=== PATIENT | female | born 2000 | race Caucasian/White ===

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

== ENCOUNTER 2022-01-10 21:56 | Emergency (ER) | payer SELFPAY ==
[~2022-01-10] VITALS: Ht 157.5 cm; Wt 83.9 kg
[~2022-01-10 21:56] MED LIST changes: +CEPH-588 PO
[2022-01-10 22:46] VITALS: BP 124/74
--- NOTE | 2022-01-10 22:50 | NUR ---
COVID-19 and flu swabs collected and sent to lab.
[2022-01-11] MEDS ORDERED: ONDA-188 SL (01:02)
[2022-01-11] MEDS: ACETAMINOPHEN EXTRA STRENGTH 500 MG TAB PO ONE (01:19)
[2022-01-11] MEDS: ONDANSETRON 4 MG ODT PO ONE (01:20)
[2022-01-11 01:46] VITALS: BP 122/74
--- NOTE | 2022-01-11 01:46 | NUR ---
Patient discharged with v/s stable. Written and verbal after care instructions given and explained for weakness. Patient alert, oriented and verbalized understanding of instructions. Ambulatory with steady gait. All questions addressed prior to discharge. ID band removed. Patient advised to follow up with PMD. Rx of Zofran given. Patient educated on indication of medication including possible reaction and side effects. Opportunity to ask questions provided and answered.
== END 2022-01-11 01:46 | disposition home or self-care (01) ==
LOC: MED 21:56
DX: R53.81 Other malaise (principal); Z20.822 Contact with and (suspected) exposure to COVID-19; R11.2 Nausea with vomiting, unspecified; J45.909 Unspecified asthma, uncomplicated; Z79.899 Other long term (current) drug therapy
CPT/HCPCS: 87426; 87804; 99283; Q0162